=== PATIENT | female | born 1990 | race Caucasian/White ===

== ENCOUNTER 2019-04-02 17:20 | Emergency (ER) | payer BC ==
[2019-04-02 17:45] VITALS: BP 156/112
--- NOTE | 2019-04-02 17:57 | UC ---
Cardiac HPI - HPI Summary HPI Summary: 28 yo came for assessment due to onset of left chest pain while driving today, associated with shortness of breath and a fear of dying. She has been assessed by her primary care office with regards to this--was seen on 03/29 for evaluation of left chest pain and was started on omeprazole, and advised re decreasing caffeine, changing dietary intake, etc She is scheduled for a gallbladder USS this week. No nausea, vomiting or diaphoresis associated. No palpitations (she thought the pressure was a palpitation)--no sense of fast or irregular rhythm. Hx of elevated blood pressure readings but overall her readings fall in normal range. She has been taking oral contraceptives for years. - History of Current Complaint Chief Complaint: UCChestPain Stated Complaint: HEART PALPATATIONS Time Seen by Provider: 04/02/19 17:29 Hx Obtained From: Patient Hx Last Menstrual Period: 2 days ago Onset/Duration: Sudden Onset, Lasting Hours Timing: Constant Initial Severity: Moderate Current Severity: Mild Pain Intensity: 8 Chest Pain Location: Upper Sternal - left side Character: Dull/Aching Aggravating Factor(s): Nothing Alleviating Factor(s): Nothing Associated Signs & Symptoms: Positive: Chest Pain, Anxiety - increasing worry about the pain. - Risk Factors Pulmonary Embolism Risk Factors: Oral Contraceptives Cardiac Risk Factors: Family History - MGM - Allergy/Home Medications Allergies/Adverse Reactions: Allergies Allergy/AdvReac Type Severity Reaction Status Date / Time No Known Allergies Allergy Verified 04/02/19 17:45 Home Medications: Home Medications Omeprazole 20 mg PO DAILY 04/02/19 [History Confirmed 04/02/19] PMH/Surg Hx/FS Hx/Imm Hx - Additional Past Medical History Additional PMH: Elevated blood pressure without hypertension - Surgical History Surgical History: Yes Surgery Procedure, Year, and Place: WISDOM TEETH EXTRACTION. TONSILECTOMY and adenoids - Family History Known Family History: Positive: Hypertension - Social History Occupation: Employed Full-time Lives: With Family Alcohol Use: Occasionally Substance Use Type: None Smoking Status (MU): Never Smoked Tobacco Have You Smoked in the Last Year: No Review of Systems All Other Systems Reviewed And Are Negative: Yes Constitutional: Positive: Fatigue Skin: Positive: Negative Eyes: Positive: Negative ENT: Positive: Negative Respiratory: Positive: Shortness Of Breath Cardiovascular: Positive: Chest Pain Gastrointestinal: Positive: Abdominal Pain - had some epigastric discomfort before prescribed omeprazole. Genitourinary: Positive: Negative Motor: Positive: Negative Neurovascular: Positive: Negative Musculoskeletal: Positive: Negative Neurological: Positive: Negative Psychological: Positive: Negative Is Patient Immunocompromised?: No Physical Exam Triage Information Reviewed: Yes Appearance: Well-Appearing, No Pain Distress Vital Signs: Initial Vital Signs Temp 99.5 F 04/02/19 17:40 Pulse 81 04/02/19 17:40 Resp 16 04/02/19 17:40 BP 156/112 04/02/19 17:40 Pulse Ox 100 04/02/19 17:40 Eye Exam: Other - NICHOLAS, normal eom Eyes: Positive: Conjunctiva Clear ENT: Positive: Pharynx normal, TMs normal Neck: Positive: Supple, Nontender, No Lymphadenopathy Respiratory: Positive: Lungs clear, Normal breath sounds Cardiovascular: Positive: RRR, No Murmur Abdomen Description: Positive: Nontender - no tenderness to liver edge or in the epigastric area., No Organomegaly, Soft Musculoskeletal Exam: Normal Musculoskeletal: Positive: Strength Intact, ROM Intact Neurological: Positive: Alert, Muscle Tone Normal Psychological Exam: Other - mildly anxious Skin Exam: Normal Diagnostics - EKG Cardiac Rate: NL Cardiac Rhythm: Sinus: Normal Ectopy: None ST Segment: Normal - Assessment/Plan Course Of Treatment: Discussed that she has no worrisome findings on EKG, but we reviewed her elevated blood pressure. She has done repeated home measurements in the past with the determination that she is not hypertensive, but she has high readings here today. This is a concern given her presentation. She is in the midst of a workup of possible gallstones and has follow up after her USS with her primary care doctor. Discussed ensuring that she takes measures to relax and to rest. - Differential Diagnoses - Chest Pain Differential Diagnosis/HQI/PQRI: ACS - Clinical Impression Provider Diagnosis: Chest pain due to GERD Discharge ED - Sign-Out/Discharge Documenting (check all that apply): Patient Departure All imaging exams completed and their final reports reviewed: No Studies - Discharge Plan Condition: Stable Disposition: HOME Patient Education Materials: Chest Pain (ED) Referrals: Stacey Bustillo MD [Primary Care Provider] - Additional Instructions: Your blood pressure is elevated today to 156/112--please follow up with your primary care doctor as arranged following your ultrasound scan. Increase your omeprazole to 20mg twice daily in the interim, and use an antiacid before meals such as Gaviscon. If you have continued chest pain with shortness of breath, please go directly to the emergency room. - Billing Disposition and Condition Condition: STABLE Disposition: Home
== END 2019-04-02 18:18 | disposition home or self-care (01) ==
LOC: UCEAST 17:20
DX: R07.89 Other chest pain (principal); K21.9 Gastro-esophageal reflux disease without esophagitis; R03.0 Elevated blood-pressure reading, without diagnosis of hypertension; F41.9 Anxiety disorder, unspecified; R06.02 Shortness of breath; R53.83 Other fatigue; Z82.49 Family history of ischemic heart disease and other diseases of the circulatory system
CPT/HCPCS: 93005; 99211; G0463